=== PATIENT | male | born 1965 | race Caucasian/White ===

== ENCOUNTER 2023-06-25 13:49 | Outpatient (OUT) | payer MEDICARE, OTHER, SELFPAY ==
--- NOTE | 2023-06-25 14:50 | CA_ITS ---
Patient Name: OLIMPIA MARTIN MR#: [id number] : 1965 Exam Date: 06/25/2023 Ordering Doctor: DR KENDRA BACH M.D. ECHOCARDIOGRAM REPORT PROCEDURE: CA ECHO DOPPLER COMPLETE INDICATIONS: Coronary artery disease, dizziness, hypertension, h/o kidney transplant (03/2018) COMPARISON: None. DESCRIPTION: COMPLETE ECHOCARDIOGRAM Real-time transthoracic echocardiography with 2D, M-mode, spectral and color flow Doppler performed. QUALITY: Technical quality was good. 70 , 203#, BSA 2.10 m2 LEFT VENTRICLE: Normal chamber size. Thickened septal wall. Normal systolic function. LV EF: Normal left ventricular ejection fraction, (>55%). DIASTOLIC: Diastolic function is indeterminate. ATRIAL SEPTUM: LEFT ATRIUM: Normal chamber size. RIGHT ATRIUM: Normal chamber size. RIGHT VENTRICLE: Normal chamber size. Normal right ventricular systolic function. TRICUSPID VALVE: Normal mobility and thickness. No stenosis with no regurgitation. MITRAL VALVE: Mildly thickened with normal mobility. Mild mitral annular calcification. Mild mitral regurgitation. AORTIC VALVE: Normal trileaflet appearance. Moderately calcified aortic valve. Moderately diminished mobility. Doppler velocity suggest moderate aortic valve stenosis. DVI 0.4, JADYN 1.35 cm2.No aortic regurgitation. AORTIC ROOT: Ascending aorta and aortic arch are normal in size. PULMONIC VALVE: Normal thickness and mobility. No stenosis. Trivial regurgitation. PERICARDIUM: No evidence of pericardial effusion. IVC: Collapses with inspirations. PLEURA: CONCLUSION: 1. Normal ventricular systolic function. LVEF is 55 to 60%. 2. Moderate aortic valve stenosis. 3. No pericardial effusion. Adult Echocardiography Procedure Report Left Ventricle LVEDD (3.7 - 5.6 cm): 4.62 cm LVESD (2.2 - 4.0 cm): 3.56 cm LVIVS thickness (0.6 - 1.2 cm): 1.32 cm LVPW thickness (0.5 - 1.0 cm): 1.02 cm E - e': 5.69 LVOT Max Gradient: 2.46 mm[Hg] LVOT Area (cm2): 3.5 cm2. Peak Velocity (LVOT): 0.78 m/s Mean Velocity (LVOT): 0.47 m/s LVOT Diameter 2.1 cm Left Atrium LA Volume Index (2D A2C): 19.19 ml/m2 Left Atrium Systolic Dimension: 2.76 cm Mitral Valve MV E to A Ratio: 0.68 Mitral Valve A-Wave Peak Velocity: 0.72 m/s Mitral Valve E-Wave Peak Velocity: 0.49 m/s Right Ventricle Aorta AO Root Diam: 3.48 cm Ascending Ao Diam: 2.97 cm Aortic Valve AoV Area (Peak Oni): 2.00 cm2, 2.00 cm2 AoV Area (VTI): 1.88 cm2, 1.88 cm2 Peak Velocity(Antegrade Flow): 1.97 m/s, 1.75 m/s, 1.79 m/s Peak Gradient(Antegrade Flow): 15.51 mm[Hg], 12.21 mm[Hg], 12.83 mm[Hg] Mean Velocity(Antegrade Flow): 1.31 m/s, 1.16 m/s, 1.12 m/s Mean Gradient(Antegrade Flow): 7.87 mm[Hg], 6.27 mm[Hg], 5.91 mm[Hg] Velocity Time Integral: 43.74 cm, 36.08 cm, 36.66 cm Tricuspid Valve Pulmonic Valve Peak Gradient: 3.73 mm[Hg], 3.01 mm[Hg] Right Atrium Right Atrium Systolic Pressure: 22.31 ml, 22.31 ml Dictated by: Kendra Bach M.D. on 06/25/2023 at 19:10 Approved by: Kendra Bach M.D. on 06/25/2023 at 19:18
== END 2023-06-25 13:50 | disposition home or self-care (01) ==
LOC: CARD 13:50
PROVIDERS: PCP Family Medicine; Visit Provider Internal Medicine Interventional Cardiology
DX: I25.10 Atherosclerotic heart disease of native coronary artery without angina pectoris (principal); I48.0 Paroxysmal atrial fibrillation
CPT/HCPCS: 93306